=== PATIENT | male | born 1975 | race Caucasian/White ===

== ENCOUNTER 2021-10-24 11:29 | Emergency (ER) | payer MEDICAID ==
[~2021-10-24] VITALS: Ht 172.7 cm; Wt 104.3 kg
[2021-10-24 12:05] VITALS: BP_SYST 152
--- NOTE | 2021-10-24 14:59 | NUR ---
Pt to bed 3 for evaluation.
--- NOTE | 2021-10-24 15:05 | NUR ---
In ER bed 3 States that he cannot urinate But when he does it is bloody He states that has a UTI URine sent.
[2021-10-24 16:08] LABS: BILIRUBIN,URINE NEGATIVE (NEGATIVE); BLOOD, URINE 1+ (NEGATIVE); COLOR,URINE YELLOW (YELLOW); GLUCOSE,URINE NEGATIVE (NEGATIVE); KETONES,URINE NEGATIVE (NEGATIVE); NITRITE, URINE NEGATIVE (NEGATIVE); PROTEIN URINE 1+ (NEGATIVE); UROBILINOGEN,URINE 0.2 (0.2-1.0)
[2021-10-24 16:16] LABS: CLARITY/URINE HAZY (CLEAR); LEUKOCYTE ESTERASE ,URINE 1+ (NEGATIVE)
[2021-10-24 16:17] LABS: BACTERIA,URINE FEW /HPF (None Seen); RBC,URINE 0-3 /HPF (0-3)
[2021-10-24 16:18] LABS: MUCUS,URINE 1+ /LPF (None Seen)
[2021-10-24] MEDS ORDERED: CEPH-548 PO (16:29)
[2021-10-24] MEDS ORDERED: cefTRIAXone 1 GM VIAL IM ONE (16:30)
[2021-10-24] MEDS ORDERED: LIDOCAINE 1%, 20 ML MDV 20 ML ONE (16:42)
[2021-10-24 16:58] VITALS: BP_SYST 160
--- NOTE | 2021-10-24 17:02 | NUR ---
Stable VSS BP slightly elevatd but improved from admit.. UA positive Given Rocephin as ordered MD has reassessed and Dc'd home To exit
[2021-10-24] MEDS ORDERED: AMLO5TAB4 PO (17:10)
== END 2021-10-24 16:58 | disposition home or self-care (01) ==
LOC: SED 11:29
DX: N10 Acute pyelonephritis (principal); I10 Essential (primary) hypertension; J45.909 Unspecified asthma, uncomplicated
CPT/HCPCS: 81000; 87086; 96372; 99283; J0696; J2001